=== PATIENT | male | born 1940 | race Caucasian/White ===

== ENCOUNTER → 2019-06-08 | Day surgery (SDC) | payer MEDICARE ==
[2019-05-19 16:25] LABS: BASOPHILS % 0.5 % (0.0-1.0); EOSINOPHILS # (AUTO) 0.2 (0.0-0.4); EOSINOPHILS % 2.7 % (0.0-6.0); HEMATOCRIT 35.7 % (38.2-49.6); HEMOGLOBIN 11.8 g/dL (14.0-18.0); LYMPHOCYTES # (AUTO) 2.6 (1.0-3.2); LYMPHOCYTES % 34.1 % (18.0-39.1); MEAN CORPUSCULAR HEMOGLOBIN 31.4 pg (28-32); MEAN CORPUSCULAR HGB CONC 33.1 g/dL (31-35); MEAN CORPUSCULAR VOLUME 94.9 fL (81-99); MONOCYTES # (AUTO) 0.6 (0.2-0.8); NEUTROPHILS # (AUTO) 4.1 (2.1-6.9); NEUTROPHILS % 54.4 % (38.7-80.0); PLATELET COUNT 173 x10e3/uL (140-360); RED BLOOD COUNT 3.76 x10e6/uL (4.3-5.7); RED CELL DISTRIBUTION WIDTH 12.6 % (11.7-14.4)
[~2019-06-08] MED LIST: FENTANYL CITRATE/PF 100MCG/2 ML INJ ONE; FLOMAX0.4 MG PO; LIDOCAINE HCL 2% LOCAL INJ 5 ML SDV VIAL INJ ONE; LISINOPRIL10 MG PO; MEGA RED PO; MSM PO; MULTIVITAMINS1 EAC7 PO; PROPOFOL IV EMULSION 10 MG/ML 20 ML VIAL ONE; RANITIDINE HCL300 MG PO; VITAMIN B COMP1 EACH PO; [UNRECOGNIZED DRUG - OTHER] PO; [UNRECOGNIZED DRUG - OTHER] PO; [UNRECOGNIZED DRUG - OTHER] PO
--- OUTSIDE RECORDS SUMMARY | 2019-06-08 10:18 | XMS REPORT ---
Author Author [facility] Address Unknown Phone Unavailable Care Team Providers Care Dealer Compliance Representative Name Role Phone Unavailable Unavailable Payers Payer Name Policy Type Policy Number Effective Date Expiration Date Problems This patient has no known problems. Allergies, Adverse Reactions, Alerts Allergy Name Allergy Type Status Severity Reaction(s) Onset Date Inactive Date Treating Clinician Comments tetanus toxoid, adsorbed DA Active U 2017-11-10 00:00:00 Medications This patient has no known medications. Results Test Description Test Time Test Comments Text Results Atomic Results Result Comments BASIC METABOLIC PANEL 2018-11-06 14:18:00 SODIUM (test code=NA) 140 mmol/L 136-145 POTASSIUM (test code=K) 4.1 mmol/L 3.5-5.1 CHLORIDE (test code=CL) 107.0 mmol/L 98-107 CARBON DIOXIDE (test code=CO2) 31.0 mmol/L 21-32 ANION GAP (test code=GAP) 6.1 10-20 GLUCOSE (test code=GLU) 141 mg/dL 74-106 BLOOD UREA NITROGEN (test code=BUN) 18 mg/dL 7-18 GLOMERULAR FILTRATION RATE (test code=GFR) > 60 mL/min >=60 Estimated GFR by using Modified MDRD formula.Chronic kidney disease is defined as either kidney damageor GFR <60 mL/min/1.73 m2 for >3 months. CREATININE (test code=CREAT) 0.90 mg/dL 0.7-1.3 BUN/CREATININE RATIO (test code=BUN/CREA) 19.5 10-20 CALCIUM (test code=CA) 9.3 mg/dL 8.5-10.1 HEPATIC FUNCTION [id number] 14:18:00* Test Item Value Reference Range Comments TOTAL PROTEIN (test code=PROT) 7.8 gram/dL 6.4-8.2 ALBUMIN (test code=ALB) 3.9 g/dL 3.4-5.0 GLOBULIN (test code=GLOB) 3.9 gram/dL 2.7-4.2 ALBUMIN/GLOBULIN RATIO (test code=A/G) 1.0 0.75-1.50 BILIRUBIN TOTAL (test code=BILT) 0.40 mg/dL 0.0-1.0 BILIRUBIN DIRECT (test code=BILD) 0.14 mg/dL 0.0-0.20 SGOT/AST (test code=AST) 10 IUnit/L 15-37 SGPT/ALT (test code=ALT) 15 IUnit/L 12-78 ALKALINE PHOSPHATASE TOTAL (test code=ALKP) 74 IUnit/L 45-117 Note change in reference range due to change in reagent. [id number] 14:18:00* Test Item Value Reference Range Comments LIPASE (test code=LIP) 110 U/L 73.0-393.0 [id number] 14:18:00* Test Item Value Reference Range Comments TROPONIN-I (test code=TROPI) <0.015 ng/mL 0-0.045 BASIC METABOLIC [id number] 14:12:00* Test Item Value Reference Range Comments SODIUM (test code=NA) 140 mmol/L 136-145 POTASSIUM (test code=K) 4.1 mmol/L 3.5-5.1 CHLORIDE (test code=CL) 107.0 mmol/L 98-107 CARBON DIOXIDE (test code=CO2) mmol/L 21-32 ANION GAP (test code=GAP) 10-20 GLUCOSE (test code=GLU) mg/dL 74-106 BLOOD UREA NITROGEN (test code=BUN) mg/dL 7-18 GLOMERULAR FILTRATION RATE (test code=GFR) mL/min >=60 CREATININE (test code=CREAT) mg/dL 0.7-1.3 BUN/CREATININE RATIO (test code=BUN/CREA) 10-20 CALCIUM (test code=CA) mg/dL 8.5-10.1 HEPATIC FUNCTION [id number] 14:12:00* Test Item Value Reference Range Comments TOTAL PROTEIN (test code=PROT) gram/dL 6.4-8.2 ALBUMIN (test code=ALB) g/dL 3.4-5.0 GLOBULIN (test code=GLOB) gram/dL 2.7-4.2 ALBUMIN/GLOBULIN RATIO (test code=A/G) 0.75-1.50 BILIRUBIN TOTAL (test code=BILT) mg/dL 0.0-1.0 BILIRUBIN DIRECT (test code=BILD) mg/dL 0.0-0.20 SGOT/AST (test code=AST) IUnit/L 15-37 SGPT/ALT (test code=ALT) IUnit/L 12-78 ALKALINE PHOSPHATASE TOTAL (test code=ALKP) IUnit/L 45-117 [id number] 14:12:00* Test Item Value Reference Range Comments LIPASE (test code=LIP) U/L 73.0-393.0 [id number] 14:12:00* Test Item Value Reference Range Comments TROPONIN-I (test code=TROPI) ng/mL 0-0.045 CBC W/O [id number] 14:00:00* Test Item Value Reference Range Comments WHITE BLOOD CELL (test code=WBC) 12.1 K/mm3 4.5-12.5 RED BLOOD CELL (test code=RBC) 4.23 mill/mm3 4.0-5.8 HEMOGLOBIN (test code=HGB) 13.5 gram/dL 13.0-17.5 HEMATOCRIT (test code=HCT) 39.9 % 42.0-52.0 MEAN CELL VOLUME (test code=MCV) 94.3 fL 80-98 MEAN CELL HGB (test code=MCH) 31.9 picogram 27.0-33.0 MEAN CELL HGB CONCETRATION (test code=MCHC) 33.8 gram/dL 33.0-36.0 RED CELL DISTRIBUTION WIDTH (test code=RDW) 12.6 % 11.6-16.2 PLATELET COUNT (test code=PLT) 183 K/mm3 150-450 MEAN PLATELET VOLUME (test code=MPV) 8.9 fL 6.7-11.0 - XR CHEST 1 [id number] 12:49:00 FAX: Magdy Alejo [phone] [place]: B St: PRE FAX: Mitchell Haynes DO Name: JANNY [facility] : 1940 Age/S: 77/M [address] [facility] Unit #: [id number] Loc: [place] [address] Phys: Mitchell Haynes DO Acct: [id number] Dis Date: Status: PRE ER PHONE #: [phone] Exam Date: 11/06/2018 1238 FAX #: [phone] Reason: pain EXAMS: CPT CODE: [id number] XR CHEST 1 V 17681 HISTORY: Pain. COMPARISON: November 10, 2017. No acute infiltrates, effusion or congestion is noted. COPD and hyperinflation. Cardiac silhouette is normal. IMPRESSION: No acute infiltrates, effusion or congestion. Hyperinflation and COPD. at 1816 Reported and signed by: Harshil Jefferson M.D. CC: Magdy Interiano; Mitchell Haynes DO Technologist: ANUM BEAR JR Trnscrd Date/Time/By: 11/06/2018 (4241) : By: [email or web address] Orig Print D/T: S: 11/06/2018 (0447) PAGE 1 Signed Report
[2019-06-08 13:45] VITALS: BP 147/77
== END | disposition home or self-care (01) ==
LOC: OR 10:15
PROVIDERS: ATTEND Internal Medicine Gastroenterology
DX: K59.00 Constipation, unspecified (principal); K29.70 Gastritis, unspecified, without bleeding; K57.30 Diverticulosis of large intestine without perforation or abscess without bleeding; K21.9 Gastro-esophageal reflux disease without esophagitis; R63.4 Abnormal weight loss; I10 Essential (primary) hypertension; R00.1 Bradycardia, unspecified; Z88.7 Allergy status to serum and vaccine; Z01.810 Encounter for preprocedural cardiovascular examination; Z01.812 Encounter for preprocedural laboratory examination; Z87.891 Personal history of nicotine dependence
CPT/HCPCS: 36415; 43239; 45378; 85025; 88305; 88312; 93005; J2001; J2704; J3010

== ENCOUNTER → 2019-10-14 | Day surgery (SDC) | payer MEDICARE, OTHER ==
[2019-10-09 14:13] LABS: BASOPHILS # (AUTO) 0.1 (0.0-0.1); BASOPHILS % 0.6 % (0.0-1.0); EOSINOPHILS # (AUTO) 0.1 (0.0-0.4); EOSINOPHILS % 1.5 % (0.0-6.0); HEMATOCRIT 33.5 % (38.2-49.6); LYMPHOCYTES % 24.8 % (18.0-39.1); MEAN CORPUSCULAR HEMOGLOBIN 31.1 pg (28-32); MEAN CORPUSCULAR HGB CONC 32.8 g/dL (31-35); MEAN CORPUSCULAR VOLUME 94.6 fL (81-99); MONOCYTES # (AUTO) 0.5 (0.2-0.8); MONOCYTES % 6.5 % (4.4-11.3); NEUTROPHILS # (AUTO) 5.4 (2.1-6.9); NEUTROPHILS % 66.4 % (38.7-80.0); PLATELET COUNT 162 x10e3/uL (140-360); RED BLOOD COUNT 3.54 x10e6/uL (4.3-5.7); RED CELL DISTRIBUTION WIDTH 12.7 % (11.7-14.4)
--- NOTE | 2019-10-09 14:16 | Diagnostic Imaging Report ---
EXAMINATION: CHEST 2 VIEWS INDICATION: Pre-operative COMPARISON: None FINDINGS: LINES/TUBES:None LUNGS:The lungs are mildly hyperinflated. No focal consolidation or pulmonary edema. PLEURA:No pleural effusion or pneumothorax. MEDIASTINUM:The cardiomediastinal silhouette appears normal in size and shape. BONES/SOFT TISSUES:No acute osseous injury. ABDOMEN:No free air under the diaphragm. IMPRESSION: No focal pneumonia or pulmonary edema. Signed by: Anya Lemons MD on 10/09/2019 2:13 PM
[2019-10-09 14:32] LABS: ANION GAP 9.8 mmol/L (8-16); BLOOD UREA NITROGEN 13 mg/dL (7-26); BUN/CREATININE RATIO 16 (6-25); CALCIUM 9.2 mg/dL (8.4-10.2); CARBON DIOXIDE 32 mmol/L (22-29); CHLORIDE 104 mmol/L (98-107); CREATININE, SERUM 0.83 mg/dL (0.72-1.25); EST GLOMERULAR FILTRATION RATE > 60 ML/MIN (60-); GLUCOSE 90 mg/dL (74-118); POTASSIUM 3.8 mmol/L (3.5-5.1); SODIUM 142 mmol/L (136-145)
[~2019-10-14] MED LIST changes: +ACETAMINOPHEN 1000 MG/100 ML 100 ML IV ONE; +ARICEPT5 MG PO; +B&O 60MG R/S 60 MG SUPP PR ONE; +CEFTRIAXONE SOD 1 GM/NS 50 ML 50 ML IV ONE; +CIPRO500 MG PO; +DETROL LA4 MG PO; +EPHEDRINE SULFATE INJ 50 MG/ML VIAL ONE; +ETOMIDATE 2 MG/ML 10 ML INJ IV ONE; +GENTAMICIN 80MG/NS 100 ML 200 ML IV ONE; +IOPAMIDOL 300MG/ML 50ML INFUS..BTL IV ONE; +NAMENDA5 MG PO; +OMEPRAZOLE40 MG PO; +ONDANSETRON HCL INJ 2MG/ML 2ML 2 MG/ML VIAL ONE; +PYRIDIUM100 MG PO; +SEVOFLURANE INHAL SOLN 250 ML PEN BTL ONE; +SODIUM CHLORIDE 0.9% 1000ML 1,000 ML ONE; +TYLENOL WITH C1 EACH PO; +ZOFRAN4 MG SL
[2019-10-14 16:45] VITALS: BP 178/91
--- NOTE | 2019-11-16 04:11 | Operative Report ---
DATE OF PROCEDURE: 10/14/2019 SURGEON: Mayito Quach MD PREOPERATIVE DIAGNOSES: 1. Obstructive benign prostatic hypertrophy. 2. Incomplete bladder emptying. POSTOPERATIVE DIAGNOSES: 1. Obstructive benign prostatic hypertrophy. 2. Incomplete bladder emptying. OPERATIONS PERFORMED: 1. Cystourethroscopy with bilateral ureteral catheterization and retrograde ureteropyelography (separate procedure was performed for incomplete bladder emptying). 2. Interpretation of retrograde ureteropyelography. 3. Supervision of fluoroscopy, no radiologist present. 4. Cystourethroscopy with photoselective vaporization of the prostate utilizing the GreenLight laser. ANESTHESIA: General. COMPLICATIONS: None. CLINICAL SUMMARY: Jacqueline Veliz is a 78-year-old man with obstructive BPH. He has failed maximal medical therapy including Flomax b.i.d. and Proscar daily. The patient is brought to the operating today for transurethral resection of the prostate with cystourethroscopy and retrogrades. There are no beds in the hospital and the patient cannot be admitted postoperatively following a TURP should he need continuous irrigation. Therefore, the surgical plan was changed to a photoselective vaporization of the prostate due to the fact that it will allow us to discharge the patient home. We discussed his preoperative plan with the patient and and they elected to proceed with surgery. They are aware of the risks of bleeding, infection, injury to adjacent structures, need for further procedures and elected to proceed. OPERATIVE PROCEDURE IN DETAIL: Informed consent was verified. Jacqueline Veliz was properly identified, taken to the operating room, placed on the cystoscopy table in supine position. Anesthesia was uneventfully begun. The patient was then carefully gently repositioned in the dorsal position with all pressure points well padded. His genitalia were prepared and draped in the usual sterile fashion. The cystoscope sheath with the visual obturator in place was atraumatically inserted into the patient's urethra, was guided unremarkably urethra through normal sphincteric region, through the prostate bed, which was significant for visually obstructing BPH with kissing lateral lobes. We entered the patient's bladder where there were heavy trabeculations noted with cellules throughout. No suspicious lesions were identified and there were no true diverticula and there were no stones. An 8-Maltese catheter was used to cannulate each ureter and retrograde ureteral pyelograms were performed. Interpretation of retrograde ureteropyelography contrast was instilled in retrograde fashion bilaterally. No tumors, no stones, and no diverticula. Unobstructed drainage was observed bilaterally fluoroscopically. J hooking was noted bilaterally. Photoselective vaporization of the prostate was then carried out with the GreenLight laser from the bladder neck to maneuver past the verumontanum. After lasering for a total laser time of 10 minutes and 44 seconds and delivering [id number] joules of energy, the patient had a wide open prostatic bed with excellent hemostasis. We therefore decided to end the procedure. We can always perform additional transurethral resection later if the patient's voiding is inadequate. The cystoscope was withdrawn. The Conley catheter was then placed. It was irrigated to and fro to ensure it worked properly, and then, the patient was uneventfully reversed from anesthesia and taken to recovery room in stable condition. Prior to leaving the operating room, a belladonna and opium suppository was placed revealing a larger than 50 g prostate that is smooth, nonfluctuant, without any nodules. There were no complications to the procedure. He tolerated the procedure well. Estimated blood loss was minimal. PLANS: Plans will be to discharge the patient home, have his Conley catheter removed after several days. Following this, we plan on following the patient with uroflowmetry and bladder ultrasonography on a regular basis. Mayito Qucah MD [place]/[facility] /[id number] cc: Zack Gibson MD
== END | disposition home or self-care (01) ==
LOC: OR 09:50
PROVIDERS: ATTEND Urology
DX: N40.1 Benign prostatic hyperplasia with lower urinary tract symptoms (principal); N39.41 Urge incontinence; R39.14 Feeling of incomplete bladder emptying; R35.1 Nocturia; Z88.7 Allergy status to serum and vaccine; N32.81 Overactive bladder; N50.0 Atrophy of testis; N32.3 Diverticulum of bladder; N43.3 Hydrocele, unspecified; Z01.810 Encounter for preprocedural cardiovascular examination; Z01.812 Encounter for preprocedural laboratory examination; Z01.818 Encounter for other preprocedural examination; Z11.59 Encounter for screening for other viral diseases
CPT/HCPCS: 36415; 52648; 71046; 74420; 80048; 85025; 93005; C1758; J0131; J0696; J1580; J2001; J2405; J2704; J3010; J7030; Q9967; U0002

== ENCOUNTER 2019-10-15 11:24 | Observation (INO) | payer MEDICARE, OTHER ==
[~2019-10-15] VITALS: Ht 170.2 cm; Wt 56.2 kg
[~2019-10-15 11:24] MED LIST changes: -ACETAMINOPHEN 1000 MG/100 ML 100 ML IV ONE; -B&O 60MG R/S 60 MG SUPP PR ONE; -CEFTRIAXONE SOD 1 GM/NS 50 ML 50 ML IV ONE; -CIPRO500 MG PO; -DETROL LA4 MG PO; -EPHEDRINE SULFATE INJ 50 MG/ML VIAL ONE; -ETOMIDATE 2 MG/ML 10 ML INJ IV ONE; -FENTANYL CITRATE/PF 100MCG/2 ML INJ ONE; -GENTAMICIN 80MG/NS 100 ML 200 ML IV ONE; -IOPAMIDOL 300MG/ML 50ML INFUS..BTL IV ONE; -LIDOCAINE HCL 2% LOCAL INJ 5 ML SDV VIAL INJ ONE; -ONDANSETRON HCL INJ 2MG/ML 2ML 2 MG/ML VIAL ONE; -PROPOFOL IV EMULSION 10 MG/ML 20 ML VIAL ONE; -PYRIDIUM100 MG PO; -SEVOFLURANE INHAL SOLN 250 ML PEN BTL ONE; -SODIUM CHLORIDE 0.9% 1000ML 1,000 ML ONE; -TYLENOL WITH C1 EACH PO; -ZOFRAN4 MG SL
[2019-10-15] MEDS ORDERED: ASPIRIN 325 MG TAB PO ONE (12:00)
[2019-10-15] MEDS ORDERED: ONDANSETRON HCL INJ 2MG/ML 2ML 2 MG/ML VIAL IV STA (12:00)
[2019-10-15] MEDS ORDERED: MORPHINE SULFATE 2 MG/ML SYR 1ML IV STA (12:00)
[2019-10-15] MEDS ORDERED: MORPHINE SULFATE INJ 4 MG/ML INJ 1ML ONE (12:10)
--- NOTE | 2019-10-15 12:59 | Emergency Department Note ---
History of Present Illnes History of Present Illness Chief Complaint: Genitourinary History of Present Illness This is a 78 year old male . Chief Complaint Comment pt had prostat surgery yesterday and now states he is in pain and meds are not working, 1500 cc of urine flow lastnight per pt, 4 cc of pink colored uring in bag at this time, no clots noted. Historian: Patient Arrival Mode: Car Onset (how long ago): day(s) (1) Location: CHEST PAIN LEFT SIDE Quality: DULL Radiation: Denies non-radiation, Denies back, Denies neck, Denies extremity, Denies abdomen, Denies periumbilical, Denies flank, Denies proximal, Denies distal, Denies other Severity: mild Onset quality: gradual Duration (how long): day(s) (1) Timing of current episode: constant Progression: waxing and waning Chronicity: new Context: Denies recent illness, Denies recent surgery, Denies recent immobilization, Denies recent travel, Denies trauma/injury, Denies new medications, Denies hx of DVT/PE, Denies non-compliance w/ medications, Denies other Relieving factors: none Exacerbating factors: none Associated symptoms: Reports denies other symptoms Treatments prior to arrival: none Past Medical/Family History Physician Review I have reviewed the patient's past medical and family history. Any updates have been documented here. Past Medical History Recent Fever: No Clinical Suspicion of Infectio: No New/Unexplained Change in Ment: No Past Medical History: Hypertension Other Medical History: prostate Other Surgery: prostate surgery 10/14/19 Social History Smoking Cessation: Current every day smoker Counseling Performed: No Alcohol Use: Daily Any Illegal Drug Use: No Physically hurt or threatened: No Other Any Pre-Existing Lines (PICC,: No Review of Systems Review of Systems Constitutional: Reports no symptoms EENTM: Reports no symptoms Cardiovascular: Reports as per HPI Respiratory: Reports no symptoms Gastrointestinal: Reports no symptoms Genitourinary: Reports no symptoms Musculoskeletal: Reports no symptoms Integumentary: Reports no symptoms Neurological: Reports no symptoms Psychological: Reports no symptoms Endocrine: Reports no symptoms Hematological/Lymphatic: Reports no symptoms Physical Exam Related Data Allergies: Uncoded Allergies: TETANUS (Allergy, Unknown, 06/08/19) Triage Vital Signs Vital Signs Date Time Temp Pulse Resp B/P (MAP) Pulse Ox O2 Delivery O2 Flow Rate FiO2 10/15/19 11:52 100.3 81 18 150/76 98 Room Air Vital signs reviewed: Yes Physical Exam CONSTITUTIONAL Constitutional: Present well-developed, Present well-nourished HENT HENT: Present normocephalic, Present atraumatic, Present oropharynx clear/moist, Present nose normal HENT L/R: Present left ext ear normal, Present right ext ear normal EYES Eyes: Reports PERRL, Reports conjunctivae normal NECK Neck: Present ROM normal PULMONARY Pulmonary: Present effort normal, Present breath sounds normal CARDIOVASCULAR Cardiovascular: Present regular rhythm, Present heart sounds normal, Present capillary refill normal, Present normal rate GASTROINTESTINAL Abdominal: Present soft, Present nontender, Present bowel sounds normal GENITOURINARY Genitourinary: Present exam deferred SKIN Skin: Present warm, Present dry MUSCULOSKELETAL Musculoskeletal: Present ROM normal NEUROLOGICAL Neurological: Present alert, Present oriented x 3, Present no gross motor or sensory deficits PSYCHOLOGICAL Psychological: Present mood/affect normal, Present judgement normal Results Laboratory Lab results reviewed: Yes Imaging Imaging results reviewed: Yes Assessment & Plan Medical Decision Making MDM CHEST PAIN ANGINA Reassessment Reassessment time: 12:58 Reassessment BETTER Assessment & Plan Final Impression: (1) Chest pain (2) Hematuria Depart Disposition: ADMITTED Last Vital Signs Date Time Temp Pulse Resp B/P (MAP) Pulse Ox O2 Delivery O2 Flow Rate FiO2 10/15/19 11:52 100.3 81 18 150/76 98 Room Air Home Meds Reported Medications Omeprazole (OMEPRAZOLE) 40 Mg Capsule.dr, 20 MG PO BID 10/09/19 Memantine Hcl (NAMENDA) 5 Mg Tablet, 5 MG PO BID, TAB 10/09/19 Donepezil Hcl (ARICEPT) 5 Mg Tablet, 10 MG PO HS, #60 TAB 10/09/19 [Oziel Red] No Conflict Check, 1 TAB PO DAILY 06/08/19 Vitamin B Complex (VITAMIN B COMPLEX) 1 Each Capsule, 1 CAP PO DAILY 06/08/19 Multivitamin (MULTIVITAMINS) 1 Each Capsule, 1 CAP PO DAILY 06/08/19 [Msm] No Conflict Check, 2 TAB PO DAILY 06/08/19 [Michrohydrin] No Conflict Check, 2 TAB PO DAILY 06/08/19 [Neuro Bright] No Conflict Check, 3 TAB PO DAILY 06/08/19 [Stem Kine] No Conflict Check, 3 TAB PO DAILY 06/08/19 Ranitidine Hcl (RANITIDINE HCL) 300 Mg Tablet, 300 MG PO DAILY 06/08/19 Tamsulosin Hcl* (FLOMAX*) 0.4 Mg Cap, 0.4 MG PO DAILY, #30 CAP 06/08/19 Lisinopril (LISINOPRIL) 10 Mg Tablet, 10 MG PO HS, #30 TAB 06/08/19 Medications in the ED Morphine Sulfate 2 mg NOW STAT IV Last administered on 10/15/19at 12:18; Admin Dose 2 MG; Start 10/15/19 at 12:00; Stop 10/15/19 at 12:02; Status DC Ondansetron HCl 4 mg NOW STAT IV ; Start 10/15/19 at 12:00; Stop 10/15/19 at 12:02; Status DC Aspirin 325 mg ONCE ONCE PO ; Start 10/15/19 at 12:00; Stop 10/15/19 at 12:02; Status DC Morphine Sulfate 4 mg STK-MED ONCE .ROUTE ; Start 10/15/19 at 12:10; Stop 10/15/19 at 12:05; Status DC CARL ABEL MD Oct 15, 2019 12:59
[2019-10-15] MEDS ORDERED: ASPIRIN 81 MG CHEW TAB PO ONE (13:00)
[2019-10-15] MEDS ORDERED: ONDANSETRON HCL INJ 2MG/ML 2ML 2 MG/ML VIAL IV PRN (13:00)
--- NOTE | 2019-10-15 13:01 | Diagnostic Imaging Report ---
EXAMINATION: CXR 1 [facility] INDICATION: Chest pain COMPARISON: Chest radiograph 10/09/2019 FINDINGS: LINES/TUBES:None LUNGS:The lungs are well-inflated. No focal consolidation or pulmonary edema. PLEURA:No pleural effusion or pneumothorax. MEDIASTINUM:The cardiomediastinal silhouette appears normal in size and shape. BONES/SOFT TISSUES:No acute osseous injury. ABDOMEN:No free air under the diaphragm. IMPRESSION: No focal pneumonia or pulmonary edema. Signed by: Anya Lemons MD on 10/15/2019 12:58 PM
[2019-10-15] MEDS ORDERED: CEFTRIAXONE SOD 1 GM/NS 50 ML 50 ML IV SCH (13:15)
[2019-10-15] MEDS ORDERED: ACETAMINOPHEN 325 MG TAB PO ONE (13:15)
[2019-10-15] MEDS ORDERED: CEFTRIAXONE SOD 1 GM VIAL IV SCH (13:15)
[2019-10-15] MEDS ORDERED: ASPIRIN 325 MG TAB ONE (13:27)
[2019-10-15] MEDS ORDERED: ACETAMINOPHEN 325 MG TAB ONE (13:27)
[2019-10-15] MEDS ORDERED: CEFTRIAXONE SOD 1 GM VIAL ONE (13:27)
--- NOTE | 2019-10-15 13:50 | NUR ---
[facility] NOTIFIED OF NEED FOR TRANSFER TO [facility].
--- NOTE | 2019-10-15 15:20 | NUR ---
RECEIVED PATIENT FROM [facility]. PATIENT A/O X3, EVEN RESPIRATIONS ON RA. NO S/S OF DISTRESS. BURGESS IN PLACE STRAW URINE. NO PAIN AT THIS TIME. CALL LIGHT IN REACH WILL CONTINUE TO MONITOR PATIENT.
[2019-10-15 16:00] VITALS: BP 143/63
--- NOTE | 2019-10-15 16:11 | NUR ---
DR. HEATON AWARE OF NEW PATIENT
[2019-10-15 16:54] VITALS: BP 143/63
--- NOTE | 2019-10-15 17:00 | NUR ---
CONSULT CALLED FOR DR. MCDONNELL
[2019-10-15] MEDS: SODIUM CHLORIDE 0.9% 1000ML 1,000 ML IV SCH (18:26)
[2019-10-15] MEDS: SENNOSIDES 8.6 MG TAB PO SCH (18:45)
[2019-10-15] MEDS ORDERED: MAGNESIUM HYDROXIDE 30 ML UDC PO PRN (18:45)
--- NOTE | 2019-10-15 19:20 | NUR ---
Patient visited in room during nursing rounds. Patient alert and oriented x3. Conley catheter in place. Urine noticeably pink-tinged with no clots. On IVF (NS at 75ml/hr). Pt ambulatory with standby assist prn. Condition stable. Call merchant within reach.
[2019-10-15 20:00] VITALS: BP 167/82
[2019-10-15 20:46] LABS: CREATINE KINASE 72 IU/L (30-200)
[2019-10-15 21:00] VITALS: BP 143/63
[2019-10-15] MEDS ORDERED: LISINOPRIL 10 MG TAB PO SCH (21:00)
[2019-10-15] MEDS ORDERED: DONEPEZIL HCL 5 MG TAB PO SCH (21:00)
[2019-10-15] MEDS: TOLTERODINE TARTRATE 2 MG TAB PO SCH (22:57)
[2019-10-15] MEDS: PHENAZOPYRIDINE HCL 100 MG TAB PO SCH (22:57)
[2019-10-16] VITALS: BP 153/87
[2019-10-16 05:28] LABS: BASOPHILS % 0.3 % (0.0-1.0); EOSINOPHILS # (AUTO) 0.2 (0.0-0.4); EOSINOPHILS % 1.6 % (0.0-6.0); HEMATOCRIT 34.1 % (38.2-49.6); HEMOGLOBIN 11.5 g/dL (14.0-18.0); LYMPHOCYTES # (AUTO) 1.8 (1.0-3.2); LYMPHOCYTES % 17.7 % (18.0-39.1); MEAN CORPUSCULAR HEMOGLOBIN 31.2 pg (28-32); MEAN CORPUSCULAR HGB CONC 33.7 g/dL (31-35); MEAN CORPUSCULAR VOLUME 92.4 fL (81-99); MONOCYTES # (AUTO) 0.8 (0.2-0.8); MONOCYTES % 8.1 % (4.4-11.3); NEUTROPHILS # (AUTO) 7.2 (2.1-6.9); NEUTROPHILS % 71.9 % (38.7-80.0); PLATELET COUNT 165 x10e3/uL (140-360); RED BLOOD COUNT 3.69 x10e6/uL (4.3-5.7); RED CELL DISTRIBUTION WIDTH 12.5 % (11.7-14.4)
[2019-10-16 06:11] LABS: CREATINE KINASE MB 1.7 ng/mL (0-5.0)
[2019-10-16] MEDS: SODIUM CHLORIDE 0.9% 1000ML 1,000 ML IV SCH (06:30)
[2019-10-16] MEDS ORDERED: PANTOPRAZOLE SOD 40 MG TABEC PO SCH (07:30)
[2019-10-16 07:56] VITALS: BP 153/87
[2019-10-16 08:00] VITALS: BP 136/74
[2019-10-16] MEDS ORDERED: NON-FORMULARY MEDICATION (Ranitidine Hcl 300 MG) PO SCH (09:00)
[2019-10-16] MEDS ORDERED: ASPIRIN 325 MG TAB EC PO SCH (09:00)
[2019-10-16] MEDS ORDERED: MEMANTINE 10 MG TAB PO SCH (09:00)
[2019-10-16] MEDS: SENNOSIDES 8.6 MG TAB PO SCH (09:00)
[2019-10-16] MEDS ORDERED: MULTIVITAMINS/MINERALS TAB PO SCH (09:00)
[2019-10-16] MEDS: PHENAZOPYRIDINE HCL 100 MG TAB PO SCH (09:00)
[2019-10-16] MEDS ORDERED: TAMSULOSIN HCL 0.4 MG CAP PO SCH (09:00)
[2019-10-16] MEDS: TOLTERODINE TARTRATE 2 MG TAB PO SCH (09:04)
--- NOTE | 2019-10-16 09:16 | NUR ---
SPOKE WITH DR. MCDONNELL AT BEDSIDE. HE STATES PT CAN BE DISCHARGED HOME WITH BURGESS IN PLACE; WANTS PT INSTRUCTED TO WEAR LEG BAG DURING THE DAY AND BEDSIDE BAG AT NIGHT. STATES BURGESS CAN BE REMOVED ON SATURDAY, OCTOBER 19, 2019 IF NO BLEEDING.
--- NOTE | 2019-10-16 09:28 | Discharge Summary ---
The patient was on observation. HOUSEKEEPING LAUNDRY WORKER: Mayito Quach MD FINAL DIAGNOSES: 1. Status post TURP on Saturday this week. 2. Urinary bladder spasm associated with a Conley catheter pain. 3. Atypical chest pain. SUMMARY: The patient is a 78-year-old male had an outpatient TURP procedures and has a Conley catheter in place. The patient apparently went home after the TURP. He had some clot. The patient has had some discomfort with the catheter. The patient came to the hospital and he was reasonable for the discomfort. Prior to his presentation, he was about to go home and then he was anxious and said that he was having some atypical chest pain. Cardiac enzyme has been negative. Workup otherwise unremarkable. The patient has been cleared by Dr. Quach to go home. He will resume his home medication. He will take Pyridium 10 mg t.i.d., Detrol 2 mg b.i.d., Zofran ODT p.r.n., Cipro 250 mg twice a day for 10 days and Tylenol No. 3 p.r.n. for pain. The patient is otherwise stable. Resume his home medication. Follow up with Dr. Mayito Quach as planned. MD SHAKIR Mulligan/VIRI /[id number]
[2019-10-16] MEDS ORDERED: PYRIDIUM100 MG PO (12:00)
[2019-10-16] MEDS ORDERED: DETROL LA4 MG PO (12:01)
[2019-10-16] MEDS ORDERED: CIPRO500 MG PO (12:02)
[2019-10-16] MEDS ORDERED: ZOFRAN4 MG SL (12:02)
[2019-10-16] MEDS ORDERED: TYLENOL WITH C1 EACH PO (12:03)
[2019-10-16] MEDS ORDERED: ACETAMINOPHEN/CODEINE 300MG - 30MG TAB PO PRN (14:30)
--- NOTE | 2019-10-16 15:29 | NUR ---
pt received all discharge paperwork and prescriptions; IV discontinued. pt waiting for to arrive at bedside. report given to AGATHA Page for transfer of care until pt's ride arrives to take him him.
== END 2019-10-16 15:45 | disposition home or self-care (01) ==
LOC: FSED 11:58 → ERHOLD 12:57 → MED/SURG 15:54
PROVIDERS: ADMIT Internal Medicine; ATTEND Internal Medicine
DX: N32.89 Other specified disorders of bladder (principal); R31.9 Hematuria, unspecified; R07.89 Other chest pain; F17.210 Nicotine dependence, cigarettes, uncomplicated; I10 Essential (primary) hypertension; Z98.890 Other specified postprocedural states; Z11.59 Encounter for screening for other viral diseases
CPT/HCPCS: 36415 ×2; 71045; 80053; 81003; 82550 ×2; 82553 ×2; 84484 ×2; 85025 ×2; 87635; 93005; 99284; G0378 ×2; J0696; J2270; J7030 ×2; S0164; J2405

== ENCOUNTER 2019-10-17 16:37 | Emergency (ER) | payer MEDICARE ==
[~2019-10-17] VITALS: Ht 165.1 cm; Wt 61.2 kg
[~2019-10-17 16:37] MED LIST changes: +CIPRO500 MG PO; +DETROL LA4 MG PO; +PYRIDIUM100 MG PO; +TYLENOL WITH C1 EACH PO; +ZOFRAN4 MG SL
--- NOTE | 2019-10-17 17:05 | NUR ---
DR CELESTIN CHECKED BURGESS PLACEMENT.
--- NOTE | 2019-10-17 17:06 | Emergency Department Note ---
History of Present Illnes History of Present Illness Chief Complaint: General Medicine Complaints History of Present Illness This is a 78 year old male c/o bladder spasms Historian: Patient, Family Member () Arrival Mode: Car Lead Advisor Required: No Onset (how long ago): day(s) (3 days) Location: c/o severe bladder spasms sine have a Laser TURP 4 days ago Severity: moderate, severe Onset quality: sudden Duration (how long): day(s) (3 days) Timing of current episode: intermittent, sporadic Progression: worsening Chronicity: new Context: Reports recent surgery (as above) Relieving factors: none Exacerbating factors: none Treatments prior to arrival: other (codeine pyridium and levaquin) Past Medical/Family History Physician Review I have reviewed the patient's past medical and family history. Any updates have been documented here. Past Medical History Recent Fever: No Clinical Suspicion of Infectio: No New/Unexplained Change in Ment: No Past Medical History: Hypertension Other Medical History: prostate, Dementia HERNIA Other Surgery: PROSTATE Surgery 4 days ago Social History Smoking Cessation: Former smoker (stopped 60 years ago) Counseling Performed: No Alcohol Use: Occasional Any Illegal Drug Use: No TB Exposure/Symptoms: No Physically hurt or threatened: No Other Any Pre-Existing Lines (PICC,: No Is patient up to date on immun: No Review of Systems Review of Systems Constitutional: Reports no symptoms EENTM: Reports no symptoms Cardiovascular: Reports no symptoms Respiratory: Reports no symptoms Gastrointestinal: Reports no symptoms Genitourinary: Reports as per HPI Musculoskeletal: Reports no symptoms Integumentary: Reports no symptoms Neurological: Reports no symptoms Psychological: Reports no symptoms Endocrine: Reports no symptoms Hematological/Lymphatic: Reports no symptoms Review of other systems: All other systems negative Physical Exam Related Data Allergies: Uncoded Allergies: TETANUS (Allergy, Unknown, 06/08/19) Vital signs reviewed: Yes (temp 100.1) Physical Exam CONSTITUTIONAL Constitutional: Present well-developed, Present well-nourished HENT HENT: Present normocephalic, Present atraumatic EYES Eyes: Reports PERRL, Reports conjunctivae normal NECK Neck: Present ROM normal, Present supple PULMONARY Pulmonary: Present effort normal, Present breath sounds normal CARDIOVASCULAR Cardiovascular: Present regular rhythm, Present heart sounds normal, Present intact distal pulses, Present capillary refill normal GASTROINTESTINAL Abdominal: Present soft, Present bowel sounds normal, Present tender (suprapubic) GENITOURINARY Genitourinary: Present penis normal, Present other (merino catheteer in place) SKIN Skin: Present warm, Present dry MUSCULOSKELETAL Musculoskeletal: Present ROM normal NEUROLOGICAL Neurological: Present alert, Present oriented x 3, Present DTRs normal, Present no gross motor or sensory deficits PSYCHOLOGICAL Psychological: Present mood/affect normal, Present behavior normal, Present thought content normal, Present judgement normal Results Laboratory Laboratory na 129 low cl 91 low mg 1.6 mildly decreased. lactic acid 1.49. CBC wbc 13.8 with h/h 11.6/34.8. U/A glucose 100 ketones 15 mg/dl sg 1.010 large blood protein greater than 300 nitrite positive and leuk esterase small Imaging Imaging results reviewed: Yes Impressions cxr [facility] Assessment & Plan Medical Decision Making MDM no beds At [facility] will transfer to [place] only bed available at this time and family agrees to transfer. Spoke with Dr Cruz at [place] acepted the patient Assessment & Plan Final Impression: (1) Acute hyponatremia (2) UTI (urinary tract infection) due to urinary indwelling catheter Depart Disposition: [facility] Home Meds Reported Medications Acetaminophen With Codeine (TYLENOL WITH CODEINE #3 TABLET) 1 Each Tablet, 300 MG PO Q6H PRN for MODERATE PAIN (4-6), TAB 10/16/19 Ciprofloxacin Hcl (CIPRO) 500 Mg Tablet, 250 MG PO Q12H, #30 TAB 10/16/19 Ondansetron Hcl* (ZOFRAN*) 4 Mg Tablet, 4 MG SL Q4HR PRN for NAUSEA 10/16/19 Tolterodine Tartrate (DETROL LA) 4 Mg Cap.er.24h, 2 MG PO BID, #30 CAP 10/16/19 Phenazopyridine Hcl (PYRIDIUM) 100 Mg Tablet, 100 MG PO TID, TAB 10/16/19 Omeprazole (OMEPRAZOLE) 40 Mg Capsule.dr, 20 MG PO BID 10/09/19 Memantine Hcl (NAMENDA) 5 Mg Tablet, 5 MG PO BID, TAB 10/09/19 Donepezil Hcl (ARICEPT) 5 Mg Tablet, 10 MG PO HS, #60 TAB 10/09/19 [Oziel Red] No Conflict Check, 1 TAB PO DAILY 06/08/19 Vitamin B Complex (VITAMIN B COMPLEX) 1 Each Capsule, 1 CAP PO DAILY 06/08/19 Multivitamin (MULTIVITAMINS) 1 Each Capsule, 1 CAP PO DAILY 06/08/19 [Msm] No Conflict Check, 2 TAB PO DAILY 06/08/19 [Michrohydrin] No Conflict Check, 2 TAB PO DAILY 06/08/19 [Neuro Bright] No Conflict Check, 3 TAB PO DAILY 06/08/19 [Stem Kine] No Conflict Check, 3 TAB PO DAILY 06/08/19 Ranitidine Hcl (RANITIDINE HCL) 300 Mg Tablet, 300 MG PO DAILY 06/08/19 Tamsulosin Hcl* (FLOMAX*) 0.4 Mg Cap, 0.4 MG PO DAILY, #30 CAP 06/08/19 Lisinopril (LISINOPRIL) 10 Mg Tablet, 10 MG PO HS, #30 TAB 06/08/19 MULUGETA CELESTIN MD Oct 17, 2019 17:06
[2019-10-17] MEDS ORDERED: ACETAMINOPHEN 325 MG TAB ONE ×2 (17:41→21:37)
[2019-10-17] MEDS ORDERED: CEFTRIAXONE SOD 1 GRAM/0.9% SOD CHL 50ML BAG IV STA (17:44)
--- NOTE | 2019-10-17 18:14 | NUR ---
FAMILY STATES BURGESS IS LEAKING AROUND PENIS. BALLOON CHECKED BALLOON DEFLATTED AND REINFLATTED PER MD ORDER. 30CC INFUSED INTO 30CC BALLOON. PT TOLARATED WELL. DR CELESTIN GIVEN UPDAT, PTS GOWN CHANGED AND BED PADS PLACED UNDER PATIENT
[2019-10-17] MEDS ORDERED: CEFTRIAXONE SOD 1 GM/NS 50 ML 50 ML IV ONE ×2 (18:15→18:29)
--- NOTE | 2019-10-17 18:51 | Diagnostic Imaging Report ---
EXAMINATION: CXR [address] [facility] INDICATION: Catheter problems COMPARISON: Chest radiograph 10/15/2019 FINDINGS: LINES/TUBES:None LUNGS:The lungs are well-inflated. No focal consolidation or pulmonary edema. PLEURA:No pleural effusion or pneumothorax. MEDIASTINUM:The cardiomediastinal silhouette is unremarkable. BONES/SOFT TISSUES:No acute osseous injury. Persistent focal ventilation of the right hemidiaphragm. ABDOMEN:No free air under the diaphragm. IMPRESSION: No acute cardiopulmonary abnormality. Signed by: Dr. Xochilt Hill M.D. on 10/17/2019 6:47 PM
--- NOTE | 2019-10-17 19:02 | NUR ---
faxed clinical report and facesheet to [facility] transfer center
--- NOTE | 2019-10-17 19:27 | NUR ---
PT UP TO RESTROOM ASSIST. BY FAMILY MEMBER FOR BM.
--- NOTE | 2019-10-17 20:26 | NUR ---
CALLED [facility] FOR TRANSPORT. [facility] FOR [facility]SPORT.
--- NOTE | 2019-10-17 21:04 | NUR ---
REPORT TO PORFIRIO WOODS FOR RM 430 FARHAT LAWSON
[2019-10-17] MEDS ORDERED: ACETAMINOPHEN 325 MG TAB PO STA (21:21)
--- NOTE | 2019-10-17 23:08 | NUR ---
REPORT TO EMS
[2019-10-17 23:15] VITALS: BP 172/74
== END 2019-10-17 23:15 | disposition short-term general hospital (02) ==
LOC: FSED 17:32
DX: T83.511A Infection and inflammatory reaction due to indwelling urethral catheter, initial encounter (principal); E87.1 Hypo-osmolality and hyponatremia; I10 Essential (primary) hypertension; F03.90 Unspecified dementia, unspecified severity, without behavioral disturbance, psychotic disturbance, mood disturbance, and anxiety
CPT/HCPCS: 71045; 80053; 81003; 85025; 87040; 87086; 99284; J0696